=== PATIENT | male | born 1950 | race Caucasian/White ===

== ENCOUNTER → 2016-12-16 | Outpatient (CLI) | payer OTHER ==
--- NOTE | 2016-12-17 10:01 | XR ---
EXAMINATION TYPE: XR foot complete LT DATE OF EXAM: 12/16/2016 11:13 AM COMPARISON: NONE HISTORY: Foot and ankle injury, fall TECHNIQUE: 3 views left foot FINDINGS: Degenerative changes are at the first metatarsophalangeal joint space. Old fracture of the fifth metatarsal may be present. There may be an acute transverse fracture the fifth metatarsals well . Clinical correlation is recommended. IMPRESSION: 1. Lucency within the proximal fifth metatarsal has a transverse appearance suggests for an acute fi fth metatarsal fracture. Chronic fracture fifth metatarsal may also be present. 2. Degenerative changes first metatarsophalangeal joint space.
--- NOTE | 2016-12-17 10:02 | XR ---
EXAMINATION TYPE: XR ankle complete LT DATE OF EXAM: 12/16/2016 11:13 AM COMPARISON: NONE HISTORY: Fall, pain TECHNIQUE: 3 views left ankle FINDINGS: There is a lucency through the distal fibula compatible with a transverse fracture. This ap pears nondisplaced. Soft tissue swelling overlying the site. Ankle mortise is intact. No additional fracture within the ankle is evident. The fifth metatarsal fra ctures also partially visualized during this exam. IMPRESSION: 1. Nondisplaced fracture distal fibula. 2. Fracture of the proximal fifth metatarsal. 3. Soft tissue swelling overlying the ankle.
== END ==
LOC: RADXRYALE 10:55
PROVIDERS: ATTEND Internal Medicine
DX: S82.832A Other fracture of upper and lower end of left fibula, initial encounter for closed fracture (principal); S92.352A Displaced fracture of fifth metatarsal bone, left foot, initial encounter for closed fracture; M19.072 Primary osteoarthritis, left ankle and foot

== ENCOUNTER → 2021-05-09 | Outpatient (CLI) | payer MEDICARE, OTHER ==
--- NOTE | 2021-05-10 09:01 | ECHOF ---
Referral Reason:R01.1 MEASUREMENTS -------- HEIGHT: 182.9 cm WEIGHT: 106.6 kg BP: IVSd: 1.1 cm (0.6 - 1.1) LVIDd: 4.8 cm (3.9 - 5.3) LVPWd: 1.3 cm (0.6 - 1.1) IVSs: 1.5 cm LVIDs: 3.8 cm LVPWs: 1.2 cm LAESV Index (A-L): 34.21 ml/m Ao Diam: 3.3 cm (2.0 - 3.7) AV Cusp: 1.7 cm (1.5 - 2.6) LA Diam: 4.1 cm (2.7 - 3.8) MV EXCURSION: 21.518 mm (> 18.000) MV EF SLOPE: 118 mm/s (70 - 150) EPSS: 1.4 cm MV E Sandeep: 0.79 m/s MV DecT: 164 ms MV A Sandeep: 0.71 m/s MV E/A Ratio: 1.12 AV maxP.47 mmHg AV meanP.08 mmHg RAP: 5.00 mmHg RVSP: 31.59 mmHg FINDINGS -------- Sinus rhythm. This was a technically good study. The left ventricular size is normal. There is borderline concentric left ventricular hypertrophy. Overall left ventricular systolic function is low-normal with, an EF between 50 - 55 %. The right ventricle is normal in size. LA is moderately dilated 34-39 ml/m2 The right atrial size is normal. There is mild aortic stenosis present. Peak/mean gradient across the Aortic Valve is 19.47mmHg / 8. 08mmHg. Mild mitral regurgitation is present. Mild tricuspid regurgitation present. Right ventricular systolic pressure is normal at < 35 mmHg. There is no pulmonic regurgitation present. There is no pericardial effusion. CONCLUSIONS -------- 1. The left ventricular size is normal. 2. There is borderline concentric left ventricular hypertrophy. 3. Overall left ventricular systolic function is low-normal with, an EF between 50 - 55 %. 4. The right ventricle is normal in size. 5. LA is moderately dilated 34-39 ml/m2 6. The right atrial size is normal. 7. There is mild aortic stenosis present. 8. Peak/mean gradient across the Aortic Valve is 19.47mmHg / 8.08mmHg. 9. Mild mitral regurgitation is present. 10. Mild tricuspid regurgitation present. 11. There is no pericardial effusion. MARKET DEVELOPMENT MANAGER: Lore Patel RDCS
== END | disposition home or self-care (01) ==
LOC: RADECHMAIN 13:45
PROVIDERS: ATTEND Internal Medicine
DX: I08.3 Combined rheumatic disorders of mitral, aortic and tricuspid valves (principal)
CPT/HCPCS: 93306

== ENCOUNTER → 2024-07-12 | Outpatient (CLI) | payer MEDICARE, OTHER ==
--- NOTE | 2024-07-13 10:11 | CA ---
Transthoracic Echo Report Name: Satish Carlos Age: 73 Gender: M : 1950 Exam Date: 07/12/2024 16:14 Exam Location: [place] [facility] Ht (in): 71 Wt (lb): 202 Ordering Physician: Paige Bobo MD Attending/Referring Phys: Riding Coach Sheila Carrizales RDCS Procedure CPT: Indications: I35.0 Nonrheumatic aortic (valve) stenosis Cardiac Hx: Technical Quality: Good Contrast 1: Total Dose (mL): Contrast 2: Total Dose (mL): MEASUREMENTS (Male / Female) Normal Values 2D ECHO LV Diastolic Diameter PLAX 5.3 cm 4.2 - 5.9 / 3.9 - 5.3 cm LV Systolic Diameter PLAX 3.1 cm IVS Diastolic Thickness 1.2 cm 0.6 - 1.0 / 0.6 - 0.9 cm LVPW Diastolic Thickness 1.2 cm 0.6 - 1.0 / 0.6 - 0.9 cm LV Relative Wall Thickness 0.5 RV Internal Dim ED PLAX 2.9 cm LVOT Diameter 2.1 cm LA Systolic Diameter LX 3.9 cm 3.0 - 4.0 / 2.7 - 3.8 cm LV Diastolic Volume MOD 4C 117.6 cm??? LV Systolic Volume MOD 4C 56.0 cm??? LV Ejection Fraction MOD 4C 52.4 % LV Cardiac Index MOD 4C 1569.6 cm???/min???m??? LV Diastolic Length 4C 8.9 cm LV Systolic Length 4C 7.4 cm LV Diastolic Volume MOD 2C 152.0 cm??? LV Systolic Volume MOD 2C 66.4 cm??? LV Ejection Fraction MOD 2C 56.3 % LV Cardiac Index MOD 2C 2180.1 cm???/min???m??? LV Diastolic Length 2C 8.0 cm LV Systolic Length 2C 6.4 cm M-MODE Aortic Root Diameter MM 3.5 cm LA Systolic Diameter MM 2.7 cm LA Ao Ratio MM 0.8 DOPPLER AV Peak Velocity 233.6 cm/s AV Peak Gradient 21.8 mmHg AV Mean Velocity 147.0 cm/s AV Mean Gradient 10.4 mmHg AV Velocity Time Integral 50.2 cm LVOT Peak Velocity 148.6 cm/s LVOT Peak Gradient 8.8 mmHg LVOT Velocity Time Integral 31.1 cm LVOT Stroke Volume 103.6 cm??? LVOT Stroke Volume Index 48.9 ml/m??? LVOT Cardiac Index 2637.1 cm???/min???m??? AV Area Cont Eq vti 2.1 cm??? AV Area Cont Eq pk 2.1 cm??? Mitral E Point Velocity 73.6 cm/s Mitral A Point Velocity 69.0 cm/s Mitral E to A Ratio 1.1 MV Deceleration Time 302.8 ms TR Peak Velocity 108.0 cm/s TR Peak Gradient 4.7 mmHg Right Ventricular Systolic Press 18.2 mmHg FINDINGS Left Ventricle Left ventricular ejection fraction is estimated at 55-60 %. Left ventricular cavity size normal. Mildly increased septal wall thickness. Normal left ventricular wall motion. Right Ventricle Normal right ventricular size and function. Right ventricular systolic pressure within normal limits. Right Atrium Normal right atrial size. No right atrial thrombus or mass seen. Left Atrium Normal left atrial size. No left atrial thrombus or mass present. Mitral Valve Structurally normal mitral valve. Trace mitral regurgitation. No mitral stenosis. No evidence for mitral valve prolapse. Aortic Valve Trileaflet aortic valve. No aortic valve stenosis or regurgitation. Aortic valve sclerosis. Mild aortic stenosis with a peak gradient of 22 mmhg and a mean gradient of 10 mmHg. Tricuspid Valve Structurally normal tricuspid valve. Trace to mild tricuspid regurgitation. Pulmonic Valve Structurally normal pulmonic valve. No pulmonic regurgitation. Pericardium No pericardial or pleural effusion. Aorta Normal size aortic root and proximal ascending aorta. CONCLUSIONS Normal LV systolic function Mild aortic stenosis Previewed by: Dr. Rafael Sweet MD (Electronically Signed) Final Date: 13 July 2024 10:10
== END | disposition home or self-care (01) ==
LOC: RADECHMAIN 15:54
PROVIDERS: ATTEND Internal Medicine
DX: I35.0 Nonrheumatic aortic (valve) stenosis (principal)
CPT/HCPCS: 93306